=== PATIENT | female | born 1960 | race Caucasian/White ===

== ENCOUNTER 2018-12-02 15:20 | Inpatient (IN) ==
[2018-12-02 18:37] LABS: Basophils % 0.2 %; Hematocrit 35.8 % (35.3-44.9); Hemoglobin 11.8 g/dL (11.5-15.4); Immature Granulocytes % 0.8 % (0-4); Lymphocytes # 1.3 K/mcL (0.6-4.6); Lymphocytes % 8.6 %; Mean Corpuscular Hemoglobin 34.6 pg (28.0-33.3); Mean Platelet Volume 9.4 fL (9.4-12.4); Monocytes # 1.1 K/mcL (0.0-1.3); Neutrophils # 12.9 K/mcL (1.6-8.9); Platelet Count 327 K/mcL (140-400); Red Blood Count 3.41 M/mcL (3.82-4.97); Red Cell Distribution Width 12.8 % (11.5-14.5); Segmented Neutrophils % 83.4 %; White Blood Count 15.4 K/mcL (4.3-11.1)
[2018-12-02 18:47] LABS: VBG HCO3 24 mEq/L (21-27); VBG PCO2 42 mmHg (41-51); VBG PH 7.37 pH Units (7.32-7.42); VBG PO2 115 mmHg (25-50)
[2018-12-02 18:52] LABS: INR 1.1; Prothrombin Time 12.2 Seconds (9.4-12.1)
[2018-12-02 19:07] LABS: Alanine Aminotransferase 12 Units/L (7-52); Albumin 3.8 g/dL (3.5-5.7); Albumin/Globulin Ratio 1.3 (1.1-2.2); Alkaline Phosphatase 64 Units/L (34-104); Aspartate Amino Transferase 16 Units/L (13-39); BUN/Creatinine Ratio 19 (6-26); Bilirubin,Indirect 0.3 mg/dL (0.0-1.2); Bilirubin,Total 0.3 mg/dL (0.3-1.0); Blood Urea Nitrogen 13 mg/dL (6-20); Calcium 8.3 mg/dL (8.6-10.3); Carbon Dioxide 23 mEq/L (23-29); Chloride 103 mEq/L (98-107); Creatine Kinase 115 Units/L (30-223); Globulin 2.9 g/dL (2.4-3.5); Glucose 85 mg/dL (70-105); Osmolality,Calculated 287 (280-300); Potassium 2.9 mEq/L (3.5-5.1); Sodium 139 mEq/L (136-145); Total Protein 6.7 g/dL (6.4-8.9); Troponin I 0.64 ng/mL (< 0.04); eGFR For African Americans > 60 (> 60); eGFR For Non-African Americans > 60 (> 60)
[2018-12-02] MEDS ORDERED: Ondansetron 4 MG/2 ML VIAL IVP PRN (20:22)
[2018-12-02] MEDS ORDERED: Acetaminophen 325 MG TABLET PO PRN (20:22)
[2018-12-02] MEDS ORDERED: Naloxone 0.4 MG/ML INJ IVP PRN (20:22)
[2018-12-02] MEDS ORDERED: 0.9 % Sodium Chloride w KCl 40 MEQ/1,000 ML MLS IVC SCH (20:30)
[2018-12-02] MEDS ORDERED: 0.9 % Sodium Chloride 1,000 ML IVC SCH (20:30)
--- NOTE | 2018-12-02 20:31 | Internal Med History&Physical ---
Date of Encounter: 12/02/18 Time of Encounter: 20:30 Internal Medicine - H&P: HPI Chief complaint: Seizure Admitted From: Emergency Dept ([facility]) History of present illness: Danielle Wilson is a 58 F w hx obesity, smoker, COPD, HTN, HLD, GERD, anxiety, migraines, who presents as transfer from [place] ED for possible seizure at home, which then during evaluation patient had witnessed tonic-clonic generalized seizure. Patient found to have lactate >10, pH 7.1, bicarb 6, K 3. She was given fluids, benzos, and transferred to [place] for ICU management. In the ICU here, patient is awake and able to answer questions. She states that she normally takes lots of medications, mainly for her anxiety and migraines, but that in the last 3-4 days has felt ill. Specifically, she notes shortness of breath with increased cough and sputum production; increased urinary frequency and polydipsia; and nausea and vomiting which has limited her ability to take any of her medications for the last 2 days. Of note, patient is on xanax, gabapentin, topamax, and lamictal, and was unable to take these for 2 days. She does not remember much of today but says she's been told she had a seizure or two. Denies fevers. Past medical, surgical, social, and family histories reviewed and updated as below, with addition to SH of tonsillectomy, SH of smokes 0.5 ppd w/o EtOH use, and FHx of no seizures or neurologic disease. Past Med Surg Social Fam HX - Past Medical History Medical history: asthma, COPD, GERD, hyperlipidemia, hypertension, migraine, other Additional medical history: RESTLESS LEGS, Psychiatric history: anxiety, depression - Past Surgical History Surgical History: appendectomy, other - Social History Smoking Status: Current every day smoker Smokeless Tobacco Status: No (1 PPD) Alcohol use: none Drug use: marijuana Internal Medicine - H&P: Meds Alprazolam [Xanax] 1 mg PO TID 04/09/15 [History] Atorvastatin [Lipitor] 10 mg PO HS 04/09/15 [History] Gabapentin [Neurontin] 800 mg PO TID 04/09/15 [History] Lisinopril [Zestril] 20 mg PO DAILY 04/09/15 [History] Methocarbamol [Robaxin] 500 mg PO QID 04/09/15 [History] Montelukast [Singulair] 10 mg PO DAILY 04/09/15 [History] Oxybutynin [Ditropan] 10 mg PO DAILY 04/09/15 [History] Topiramate [Topamax] 100 mg PO BID 04/09/15 [History] hydroCHLOROthiazide [Hydrochlorothiazide] 25 mg PO DAILY 04/09/15 [History] lamoTRIgine [Lamictal] 100 mg PO BID 04/09/15 [History] Albuterol Sulfate [Albuterol Inhaler] 2 puff IH Q4HR 08/10/15 [History] Esomeprazole Magnesium [Nexium] 20 mg PO DAILY #30 suspdr.pkt 08/10/15 [Rx] Fluticasone Propionate [Flovent Diskus] 100 mcg IH BID 08/10/15 [History] Ondansetron [Zofran ODT] 8 mg SL Q8HR PRN #5 tab.rapdis 08/10/15 [Rx] Potassium Chloride [K-Tab ER] 20 meq PO DAILY #20 tablet.er 08/10/15 [Rx] Furosemide [Lasix] 20 mg PO DAILY #7 tablet 09/13/15 [Rx] Hydrocodone/Acetaminophen [[place] 5-325 Tablet] 1 each PO Q6H PRN #15 tablet 11/21/15 [Rx] Ibuprofen 800 mg PO TID PRN #22 tablet 01/13/17 [Rx] Ondansetron ODT [Zofran ODT] 4 mg SL Q4HR PRN #10 tab.rapdis 12/01/18 [Rx] Allergy/AdvReac Type Severity Reaction Status Date / Time naproxen Allergy Vomiting Verified 04/09/15 21:49 tramadol [From Ultram] Allergy Vomiting Verified 04/09/15 21:49 All Systems PM: A 10-system review of systems was performed and is negative for pertinent findings except as documented above in the HPI. - Constitutional Vitals: Temp Pulse Resp BP Pulse Ox 97.6 F 60 16 184/81 99 12/02/18 18:00 12/02/18 18:00 12/02/18 18:00 12/02/18 18:00 12/02/18 18:00 Exam: General: NAD, AAOx3, good eye contact, chronically ill appearing Head: Atraumatic, normocephalic. Face symmetric Eyes: EOMI, sclerae anicteric ENT: Mucous membranes dry. Normal oral mucosa and moderate dentition. Trachea midline. No cervical lymphadenopathy Thoracic: No visible chest wall deformities. Normal breath sounds b/l, no wheezing or crackles Cardio: Normal S1 and S2, regular rate and rhythm, no murmurs. Abdomen: Soft, nontender, nondistended. Bowel sounds present. Extremities: Warm, well perfused. DP pulses 2+ b/l. No clubbing, cyanosis. No edema Skin: Intact. No rashes, bruises, or ulcers Neuro: Awake, fully oriented. Decent memory, concentration, attention. Speech fluent. CN II-XII grossly intact. Strength 5/5 in b/l UE and LE Internal Med - H&P Results - Labs CBC & Chem 7: 12/02/18 18:16 12/02/18 18:16 Labs: Short CBC 12/02/18 Range/Units 18:16 WBC 15.4 H (4.3-11.1) K/mcL Hgb 11.8 D (11.5-15.4) g/dL Hct 35.8 (35.3-44.9) % Plt Count 327 (140-400) K/mcL Neutrophils # 12.9 H (1.6-8.9) K/mcL BMP 12/02/18 18:16 Sodium 139 Potassium 2.9 L Chloride 103 Carbon Dioxide 23 BUN 13 Creatinine 0.69 Glucose 85 Calcium 8.3 L Cardiac Enzymes 12/02/18 Range/Units 18:16 Troponin I 0.64 H* (< 0.04) ng/mL Liver Function 12/02/18 Range/Units 18:16 Total Bilirubin 0.3 (0.3-1.0) mg/dL Direct Bilirubin 0.0 (0.0-0.2) mg/dL AST 16 (13-39) Units/L ALT 12 (7-52) Units/L Alkaline Phosphatase 64 (34-104) Units/L Albumin 3.8 (3.5-5.7) g/dL - ABG Interpretation ABG results: 12/02/18 18:42 VBG pH 7.37 VBG pCO2 42 VBG pO2 115 H VBG HCO3 24 - Summary of Assessment and Plan Summary of Assessment and Plan: Danielle Wilson is a 58 F w hx obesity, smoker, COPD, HTN, HLD, GERD, anxiety, migraines, who p/w seizures following 2 days N/V and inability to take several antiepileptic drugs, subsequently found with severe metabolic and lactic acidosis. Seizure: likely 2/2 abrupt withdrawal from lamictal, xanax, gabapentin, and topamax due to N/V - ativan prn seizure - seizure precautions - check BMP, LFTs, INR, ammonia, trop, CK, procal, blood cultures - Neuro consult Lactic acidosis: causing significant anion gap metabolic acidosis, improving w fluids and no further seizures, suspect was from convulsions and poor PO - repeat lactate - repeat ABG Hypokalemia: replace and monitor Leukocytosis: likely reactive 2/2 seizure, procal negative, BCx pending HTN: uncontrolled, likely 2/2 inability to PO meds, resume home hctz 12.5 and lisinopril 20 HLD: home lipitor Anxiety: xanax 1 tid, lamictal 100 bid Migraines: topamax 50 bid ?pain: gabapentin 800 tid Obesity: BMI 34 PPx: SCDs Activity: ambulate w assist, seizure precautions in bed FEN: cardiac, MIVF NS+40K@125 overnight Lines: PIV Consults: Neuro Code: Full Dispo: patient requires inpatient eval and management at this time. Anticipate 2-3 days. Will be homegoing
[2018-12-02] MEDS: lamoTRIgine 100 MG TABLET PO SCH (21:26)
[2018-12-02] MEDS: ALPRAZolam 1 MG TABLET PO SCH (21:26)
[2018-12-02] MEDS: Topiramate 100 MG TABLET PO SCH (21:26)
[2018-12-02] MEDS: Lisinopril-HCTZ 20-12.5mg TABLET PO SCH (21:27)
[2018-12-02] MEDS: Gabapentin 400 MG CAPSULE PO SCH (21:27)
[2018-12-03] MEDS ORDERED: Acetaminophen/Aspirin/Caffeine TABLET PO ONE (02:01)
[2018-12-03 06:42] LABS: Basophils % 0.5 %; Eosinophils # 0.1 K/mcL (0.0-0.6); Eosinophils % 0.6 %; Hematocrit 37.1 % (35.3-44.9); Hemoglobin 12.1 g/dL (11.5-15.4); Immature Granulocytes % 0.4 % (0-4); Lymphocytes # 1.9 K/mcL (0.6-4.6); Lymphocytes % 22.4 %; Mean Corpuscular HGB Conc 32.6 g/dL (31.6-35.5); Mean Corpuscular Hemoglobin 34.9 pg (28.0-33.3); Mean Corpuscular Volume 106.9 fL (83.0-100.0); Mean Platelet Volume 9.7 fL (9.4-12.4); Monocytes # 0.7 K/mcL (0.0-1.3); Monocytes % 8.4 %; Neutrophils # 5.7 K/mcL (1.6-8.9); Platelet Count 325 K/mcL (140-400); Red Blood Count 3.47 M/mcL (3.82-4.97); Red Cell Distribution Width 13.2 % (11.5-14.5); Segmented Neutrophils % 67.7 %; White Blood Count 8.4 K/mcL (4.3-11.1)
[2018-12-03 07:17] LABS: Alanine Aminotransferase 12 Units/L (7-52); Albumin 3.9 g/dL (3.5-5.7); Albumin/Globulin Ratio 1.3 (1.1-2.2); Alkaline Phosphatase 63 Units/L (34-104); Aspartate Amino Transferase 17 Units/L (13-39); BUN/Creatinine Ratio 12 (6-26); Bilirubin,Total 0.3 mg/dL (0.3-1.0); Blood Urea Nitrogen 11 mg/dL (6-20); Calcium 8.8 mg/dL (8.6-10.3); Carbon Dioxide 25 mEq/L (23-29); Chloride 107 mEq/L (98-107); Globulin 2.9 g/dL (2.4-3.5); Glucose 120 mg/dL (70-105); Magnesium 2.4 mg/dL (1.6-2.6); Osmolality,Calculated 289 (280-300); Phosphorous 1.6 mg/dL (2.7-4.5); Potassium 3.7 mEq/L (3.5-5.1); Sodium 139 mEq/L (136-145); Total Protein 6.8 g/dL (6.4-8.9); eGFR For African Americans > 60 (> 60); eGFR For Non-African Americans > 60 (> 60)
--- NOTE | 2018-12-03 07:46 | Internal Med Progress Note ---
Hospitalist Progress Note - Encounter Date of Encounter: 12/03/18 Time of Encounter: 07:41 - Subjective Interval History: Pt today states she feels great, denies issues except dislikes the SCDs on calves. Waiting for Neurology and for TTE, hopeful to go home today. No N/V/D, has good PO, no fevers, CP, SOB. Does have productive cough. - Exam Vitals: Temp Pulse Resp BP Pulse Ox 98.4 F 79 14 154/72 97 12/03/18 07:11 12/03/18 07:11 12/03/18 07:11 12/03/18 07:11 12/03/18 07:11 Exam: General: NAD, AAOx3, good eye contact, relatively well appearing today Thoracic: Normal breath sounds b/l, no wheezing or crackles Cardio: Normal S1 and S2, regular rate and rhythm Abdomen: Soft, nontender Extremities: Warm, well perfused. DP pulses 2+ b/l. No edema Skin: Intact. No rashes, bruises, or ulcers Neuro: Awake, fully oriented. Good memory, concentration, attention. Speech fluent. - Summary of Assessment and Plan Summary of Assessment and Plan: Danielle Wilson is a 58 F w hx obesity, smoker, COPD, HTN, HLD, GERD, anxiety, migraines, who p/w seizures following 2 days N/V and inability to take several antiepileptic drugs, subsequently found with severe metabolic and lactic acidosis. Seizure: likely 2/2 abrupt withdrawal from lamictal, xanax, gabapentin, and topamax due to N/V - ativan prn seizure - seizure precautions - Neuro consult - resuming psych meds mentioned above Elevated troponin: and elevated BNP, possibly 2/2 seizure, but hx HTN and pt's initial symptoms of N/V could be 2/2 edema - TTE Lactic acidosis: resolved - BCx x2 pending Hypophosphatemia: replace and monitor Macrocytosis: check folate and B12 Hypokalemia: resolved Leukocytosis: resolved HTN: uncontrolled, likely 2/2 inability to PO meds, resume home hctz 12.5 and lisinopril 20 HLD: home lipitor Anxiety: xanax 1 tid, lamictal 100 bid Migraines: topamax 50 bid ?pain: gabapentin 800 tid Obesity: BMI 34 PPx: SCDs Activity: ambulate w assist, seizure precautions in bed FEN: cardiac, no MIVF Lines: PIV Consults: Neuro Code: Full Dispo: patient requires inpatient eval and management at this time. Anticipate d/c today or tomorrow. Will be homegoing Internal Medicine: Result - Labs CBC & Chem 7: 12/03/18 06:17 12/03/18 06:17 Labs: Short CBC 12/02/18 12/03/18 Range/Units 18:16 06:17 WBC 15.4 H 8.4 (4.3-11.1) K/mcL Hgb 11.8 D 12.1 (11.5-15.4) g/dL Hct 35.8 37.1 (35.3-44.9) % Plt Count 327 325 (140-400) K/mcL Neutrophils # 12.9 H 5.7 (1.6-8.9) K/mcL BMP 12/02/18 12/03/18 18:16 06:17 Sodium 139 139 Potassium 2.9 L 3.7 D Chloride 103 107 Carbon Dioxide 23 25 BUN 13 11 Creatinine 0.69 0.90 Glucose 85 120 H Calcium 8.3 L 8.8 Cardiac Enzymes 12/02/18 12/03/18 Range/Units 18:16 06:17 Troponin I 0.64 H* 0.51 H* (< 0.04) ng/mL Liver Function 12/02/18 12/03/18 Range/Units 18:16 06:17 Total Bilirubin 0.3 0.3 (0.3-1.0) mg/dL Direct Bilirubin 0.0 (0.0-0.2) mg/dL AST 16 17 (13-39) Units/L ALT 12 12 (7-52) Units/L Alkaline Phosphatase 64 63 (34-104) Units/L Albumin 3.8 3.9 (3.5-5.7) g/dL - ABG Interpretation ABG results: PT/INR, D-dimer PT 12.2 Seconds (9.4-12.1) H 12/02/18 18:16 - VTE Documentation of Mechanical Device: Intermittent pneumatic compression device Consult Discharge Plan - Plan Referrals: NONE,PCP [Primary Care Provider] -
[2018-12-03] MEDS: Topiramate 100 MG TABLET PO SCH (09:18)
[2018-12-03] MEDS: Gabapentin 400 MG CAPSULE PO SCH ×2 (09:18→15:17)
[2018-12-03] MEDS: Lisinopril-HCTZ 20-12.5mg TABLET PO SCH (09:18)
[2018-12-03] MEDS: lamoTRIgine 100 MG TABLET PO SCH (09:18)
[2018-12-03] MEDS: ALPRAZolam 1 MG TABLET PO SCH ×2 (09:18→15:17)
[2018-12-03] MEDS ORDERED: Perflutren Lipid Microsphere 1.3 ML in 0.9 % Sodium Chloride 8.7 ML IVP ONE (10:22)
[2018-12-03 10:27] LABS: Folate 9.7 ng/mL (3.0-16.0)
[2018-12-03 12:15] VITALS: BP 163/75
--- NOTE | 2018-12-03 15:40 | Discharge Summary ---
- NOTES TO OUTPATIENT PROVIDER Notes to Outpatient Provider: New seizure, needs close neuro follow up for MRI, EEG, etc. Date of Encounter: 12/03/18 Time of Encounter: 15:37 Hospital course: Dear Doctors, I recently had the opportunity to care for this patient during their recent hospital stay at [facility]. Danielle Wilson is a 58 F w hx obesity, smoker, COPD, HTN, HLD, GERD, anxiety, migraines, who presented at time of admission with seizures following 2 days of ongoing N/V leading to inability to take several home medications, of which several have antiepileptic properties. In the ED, she was subsequently found to have severe metabolic and lactic acidosis with pH 7.07, bicarb 6, lactate >10. Patient had another seizure in the ED. CT head and abdomen, as well as CXR, were unremarkable. Patient given Ativan and fluids prior to transfer to [place]. In the hospital, patient improved more rapidly than expected. Other than some fuzziness for the day's events, patient had no neurologic deficits. Able to PO, which along with IV hydration resulted in rapid reversal/improvement of patient's labs and clinical condition. Etiology of her seizures was felt to be due to her rapid (unintentional) withdrawal from xanax 1 tid, lamictal 200 bid, and gabapentin 800 tid, in context of also taking wellbutrin. She was resumed on her home meds with exception of wellbutrin. Case discussed with Neuro Dr Neal, and she will follow up later this week with in his office for additional workup including possible MRI and EEG. Pt advised to not drive. Of note, pt did have mild BNP and trop elevation likely reactive from seizure, and TTE was un remarkable. Dx: nausea/vomiting, generalized tonic-clonic seizures, lactic acidosis / anion gap metabolic acidosis, demand ischemia, polypharmacy Pertinent tests/consults: CT head and CT abd unremarkable Follow up: Neuro Dr Neal 1 week Tests pending: none Med changes: stop wellbutrin Mental status: awake, fully oriented Code status: Log Sawyer spent on discharge: 45 minutes It has been my pleasure participating in this patient's care. Please contact me with any questions or concerns regarding their hospital stay. Sincerely, iDaz Palma MD - Discharge Medications Prescriptions: Continued Albuterol Sulfate [Proair Hfa] 2 puff IH Q4-6H PRN PRN Reason: Shortness Of Breath ALPRAZolam [Xanax 1 MG Tablet] 1 mg PO QID Aspirin [Lo-Dose Aspirin EC] 81 mg PO DAILY Aspirin/Acetaminophen/Caffeine [Excedrin Migraine Caplet] 2 tab PO PER PKG DI PRN PRN Reason: Migraine Headache Atorvastatin [Lipitor] 40 mg PO HS Cetirizine HCl [24Hour Allergy] 10 mg PO DAILY Fenofibrate [Tricor] 54 mg PO DAILY FLUoxetine HCl [Prozac] 20 mg PO DAILY Fluticasone Propionate Nasal [Flonase] 2 spr NS DAILY PRN PRN Reason: Allergy Symptoms Gabapentin [Neurontin] 800 mg PO QID Ibuprofen [Ibu] 800 mg PO Q8H PRN PRN Reason: Mild Pain lamoTRIgine [Lamotrigine] 200 mg PO BID Lisinopril [Zestril] 20 mg PO DAILY Methocarbamol [Robaxin] 500 mg PO Q6H PRN PRN Reason: Muscle Spasm Mometasone/Formoterol [Dulera 200 Mcg/5 Mcg Inhaler] 2 puff IH BID Montelukast [Singulair] 10 mg PO HS Omeprazole [PriLOSEC] 20 mg PO BIDAC Ondansetron HCl [Zofran] 4 mg PO Q8HR PRN PRN Reason: Nausea Oxybutynin Chloride [Ditropan XL] 10 mg PO DAILY SUMAtriptan Succinate [Imitrex] 100 mg PO AD PRN MDD 200MG/24HOURS PRN Reason: Headache Zolpidem [Ambien] 5 mg PO HS PRN PRN Reason: Sleep Discontinued Bupropion HCl [Wellbutrin Xl] 300 mg PO DAILY Home Medications: ALPRAZolam [Xanax 1 MG Tablet] 1 mg PO QID 12/03/18 [History] Albuterol Sulfate [Proair Hfa] 2 puff IH Q4-6H PRN 12/03/18 [History] Aspirin [Lo-Dose Aspirin EC] 81 mg PO DAILY 12/03/18 [History] Aspirin/Acetaminophen/Caffeine [Excedrin Migraine Caplet] 2 tab PO PER PKG DI PRN 12/03/18 [History] Atorvastatin [Lipitor] 40 mg PO HS 12/03/18 [History] Cetirizine HCl [24Hour Allergy] 10 mg PO DAILY 12/03/18 [History] FLUoxetine HCl [Prozac] 20 mg PO DAILY 12/03/18 [History] Fenofibrate [Tricor] 54 mg PO DAILY 12/03/18 [History] Fluticasone Propionate Nasal [Flonase] 2 spr NS DAILY PRN 12/03/18 [History] Gabapentin [Neurontin] 800 mg PO QID 12/03/18 [History] Ibuprofen [Ibu] 800 mg PO Q8H PRN 12/03/18 [History] Lisinopril [Zestril] 20 mg PO DAILY 12/03/18 [History] Methocarbamol [Robaxin] 500 mg PO Q6H PRN 12/03/18 [History] Mometasone/Formoterol [Dulera 200 Mcg/5 Mcg Inhaler] 2 puff IH BID 12/03/18 [History] Montelukast [Singulair] 10 mg PO HS 12/03/18 [History] Omeprazole [PriLOSEC] 20 mg PO BIDAC 12/03/18 [History] Ondansetron HCl [Zofran] 4 mg PO Q8HR PRN 12/03/18 [History] Oxybutynin Chloride [Ditropan XL] 10 mg PO DAILY 12/03/18 [History] SUMAtriptan Succinate [Imitrex] 100 mg PO AD PRN MDD 200MG/24HOURS 12/03/18 [History] Zolpidem [Ambien] 5 mg PO HS PRN 12/03/18 [History] lamoTRIgine [Lamotrigine] 200 mg PO BID 12/03/18 [History] Allergies/Adverse Reactions: Allergy/AdvReac Type Severity Reaction Status Date / Time naproxen Allergy Vomiting Verified 12/03/18 11:37 tramadol [From Ultram] Allergy Vomiting Verified 12/03/18 11:37 Date of admission: 12/02/18 20:21 Primary care physician: PCP NONE Consults: 12/02/18 20:29 Consult to Neurology [CONS] Routine Consulting Provider: [facility] Reason for Consult: seizure, suspect from nausea causing pt unable to take lamictal, topamax, gabapentin, and xanax for 2 days Call Completed: No 12/03/18 09:11 Consult to Occupational Therapy [CONS] Routine Comment: Evaluate, develop and implement POC Reason for Consult: weakness, unknown discharge disposition Does patient have active BEDREST order?: No Is patient medically & hemodynamically stable?: Yes Patient assessed for mobility or mobilized this visit?: No Consult to Physical Therapy [CONS] Routine Comment: Evaluate, develop and implement POC Reason for Consult: weakness, unknow discharge disposition. Does patient have active BEDREST order?: No Is patient medically & hemodynamically stable?: Yes Patient assessed for mobility or mobilized this visit?: No - Constitutional Vitals: Temp Pulse Resp BP Pulse Ox 98.1 F 73 12 163/75 97 12/03/18 12:00 12/03/18 12:00 12/03/18 12:00 12/03/18 12:00 12/03/18 12:00 Exam: General: NAD, AAOx3, good eye contact, relatively well appearing today Thoracic: Normal breath sounds b/l, no wheezing or crackles Cardio: Normal S1 and S2, regular rate and rhythm Abdomen: Soft, nontender Extremities: Warm, well perfused. DP pulses 2+ b/l. No edema Skin: Intact. No rashes, bruises, or ulcers Neuro: Awake, fully oriented. Good memory, concentration, attention. Speech fluent. - Patient Status Disposition: Home, Self-Care Condition: Fair Functional capacity at discharge: independent ambulation Overall status at discharge: patient is back to baseline - Discharge Instructions Follow Up With: NONE,PCP [Primary Care Provider] - Jamal Neal DO [Partnered Physician] - (<1 week follow up) Additional Instructions: No driving until Neurology follow up appointment - Diet and Activity Activity: resume usual activities as tolerated (no driving until Neurology follow up) Diet: advance to your usual diet - VTE Documentation of Mechanical Device: Intermittent pneumatic compression device
[2018-12-03 15:57] LABS: Estimated Average Glucose 111 mg/dl
== END 2018-12-03 17:23 | disposition home or self-care (01) | DRG 53 ==
LOC: ICNU → SUATTDRO 17:29 → 2NENU 12-03 00:55
PROVIDERS: ADMIT Internal Medicine; ATTEND Internal Medicine